=== PATIENT | female | born 1970 | race Caucasian/White ===

== ENCOUNTER 2016-08-17 08:19 | Outpatient (CLI) | payer OTHER | END 2016-08-17 08:20 | disposition home or self-care (01) | DX: Z12.31 Encounter for screening mammogram for malignant neoplasm of breast (principal) ==

== ENCOUNTER 2017-06-08 08:06 | Outpatient (CLI) | payer OTHER ==
--- NOTE | 2017-06-08 15:18 | Ultrasound Report ---
EXAM: CAROTID DOPPLER ULTRASOUND EXAM DATE: 06/08/2017 08:19 a.m. CLINICAL HISTORY: Syncope, carotid atherosclerosis. COMPARISON: None. TECHNIQUE: Real-time sonographic vascular imaging was performed by the stunner and shackler through the caroti d arterial system with a linear transducer utilizing color-flow, Doppler flow and spectral analysis. Multiple advertising representative static images were saved for review. FINDINGS: Right: There is no plaquing in the right carotid bifurcation or internal carotid artery. Left: There is no plaquing in the left carotid bifurcation or internal carotid artery. The vertebral arteries demonstrate antegrade flow bilaterally. RIGHT: RCCA Prox: PSV 74 cm/sec. RCCA Dist: PSV 66 cm/sec, EDV 25 cm/sec. RECA: PSV 76 cm/sec. R Bulb: PSV 64 cm/sec, EDV 25 cm/sec, ICA/CCA ratio 0.96. CHLOE Prox: PSV 68 cm/sec, EDV 30 cm/sec, ICA/CCA ratio 1.0. CHLOE Mid: PSV 84 cm/sec, EDV 35 cm/sec, ICA/CCA ratio 1.2. CHLOE Dist: PSV 91 cm/sec, EDV 47 cm/sec, ICA/CCA ratio 1.3. RVA: PSV 59 cm/sec. RVA flow direction: Antegrade. LEFT: LCCA Prox: PSV 85 cm/sec. LCCA Dist: PSV 84 cm/sec, EDV 31 cm/sec. LECA: PSV 75 cm/sec. L Bulb: PSV 82 cm/sec, EDV 31 cm/sec, ICA/CCA ratio .097. LICA Prox: PSV 64 cm/sec, EDV 28 cm/sec, ICA/CCA ratio 0.76. LICA Mid: PSV 89 cm/sec, EDV 36 cm/sec, ICA/CCA ratio 1.0. LICA Dist: PSV 64 cm/sec, EDV 31 cm/sec, ICA/CCA ratio 0.76. LVA: PSV 56 cm/sec. LVA flow direction: Antegrade. Other: Incidental note of heterogeneous thyroid echotexture. Correlation with thyroid function tests is recommended. IMPRESSION: No hemodynamically significant stenoses. Validated velocity measurements with angiographic measurements and velocity criteria are extrapolated from diameter data as defined by the Society of Radiologists in Ultrasound Consensus Conference Radi ology 2003; 229;340-346. [facility] Referring Provider Line: [phone] SITE ID: [id number]
== END 2017-06-08 08:07 | disposition home or self-care (01) ==
LOC: DI 08:06
PROVIDERS: ATTEND Internal Medicine Cardiovascular Disease
DX: R55 Syncope and collapse (principal)
CPT/HCPCS: 93880

== ENCOUNTER 2019-08-03 08:00 | Outpatient (CLI) | payer OTHER ==
[2019-08-03 14:33] LABS: BASOPHILS # (AUTO) 0.1 10^3/uL (0.0-0.1); BASOPHILS % (AUTO) 1.1 %; EOSINOPHILS # (AUTO) 0.1 10^3/uL (0.0-0.7); EOSINOPHILS % (AUTO) 1.8 %; HGB - HEMOGLOBIN 12.8 g/dL (12.0-16.0); LYMPHOCYTES # (AUTO) 1.3 10^3/uL (1.5-3.5); MEAN CORPUSCULAR HEMOGLOBIN 30.2 pg (27.0-31.0); MEAN CORPUSCULAR HGB CONC 31.4 g/dL (32.0-36.0); MEAN PLATELET VOLUME 9.4 fL (7.9-10.8); MONOCYTES # (AUTO) 0.5 10^3/uL (0.0-1.0); MONOCYTES % (AUTO) 11.2 %; NEUTROPHILS # (AUTO) 2.5 10^3/uL (1.5-6.6); NEUTROPHILS % (AUTO) 55.7 %; PLT - PLATELET COUNT 298 10^3/uL (130-450); RED BLOOD COUNT 4.24 10^6/uL (4.20-5.40); RED CELL DISTRIBUTION WIDTH 13.8 % (12.0-15.0); WHITE BLOOD COUNT 4.5 x10^3/uL (4.8-10.8)
[2019-08-03 15:11] LABS: ALBUMIN 4.3 g/dL (3.2-5.5); ALBUMIN/GLOBULIN RATIO 1.8 (1.0-2.2); BILIRUBIN,TOTAL 1.4 mg/dL (0.2-1.0); CALCIUM 9.5 mg/dL (8.5-10.3); CREATININE 0.6 mg/dL (0.4-1.0); TOTAL PROTEIN 6.7 g/dL (6.7-8.2)
== END 2019-08-03 23:59 | disposition home or self-care (01) ==
LOC: LAB.WCP 08:00
PROVIDERS: ATTEND Physician Assistant Medical
DX: R10.13 Epigastric pain (principal)
CPT/HCPCS: 36415; 80053; 83690; 85025

== ENCOUNTER 2019-08-28 07:34 | Outpatient (CLI) | payer OTHER ==
--- NOTE | 2019-08-28 10:48 | Ultrasound Report ---
Reason: EPIGASTRIC PAIN Procedure Date: 08/28/2019 Accession Number: [id number] / [id number] Procedure: US - Abdomen Complete CPT Code: Final Report FULL RESULT: EXAM: ABDOMEN ULTRASOUND EXAM DATE: 08/28/2019 08:47 AM. CLINICAL HISTORY: EPIGASTRIC PAIN. COMPARISON: None. TECHNIQUE: Real-time scanning was performed with static images obtained. FINDINGS: Liver: Coarse parenchyma, mildly echogenic. No masses. Normal overall size, 14.2 cm. Main portal vein flow: Hepatopetal. Gallbladder: Heterogeneous gallbladder wall compatible with adenomyomatosis. No stones, wall thickening, or localized tenderness. Biliary System: Common bile duct measures 5 mm. No intrahepatic or extrahepatic ductal dilatation. Pancreas: Visualized portion is unremarkable. Kidneys: Right: 10.0 cm longitudinally. Normal. No contour-deforming mass, stones, or hydronephrosis. Left: 10.1 cm longitudinally. Normal. No contour-deforming mass, stones, or hydronephrosis. Spleen: 8.9 x 2.7 x 8.7 cm. Normal in size and echotexture. Aorta and Inferior Vena Cava: Unremarkable. Other: None. IMPRESSION: 1. Mild fatty liver. 2. Gallbladder Adenomyomatosis. [facility]
== END 2019-08-28 07:35 | disposition home or self-care (01) ==
LOC: DI 07:34
PROVIDERS: ATTEND Physician Assistant Medical
DX: K76.0 Fatty (change of) liver, not elsewhere classified (principal); K82.8 Other specified diseases of gallbladder
CPT/HCPCS: 76700

== ENCOUNTER 2019-10-01 13:27 | Day surgery (SDC) | payer OTHER ==
[2019-10-01] MEDS ORDERED: LACTATED RINGERS 1,000 ML IV ONE (13:39)
[2019-10-01] MEDS ORDERED: LIDO GARGLE 30 ML BOTTLE ONE (14:16)
[2019-10-01] MEDS ORDERED: MIDAZOLAM 2 MG/2 ML VIAL IVP ONE (14:55)
[2019-10-01] MEDS ORDERED: fentaNYL 250 MCG/5 ML VIAL IVP ONE (14:55)
[2019-10-01] MEDS ORDERED: LIDO GARGLE 30 ML BOTTLE PO ONE (14:59)
[2019-10-01 16:13] VITALS: BP 103/65
[2019-10-01] MEDS ORDERED: ONDANSETRON ODT 4 MG TABLET ONE (16:25)
== END 2019-10-01 13:28 | disposition home or self-care (01) ==
LOC: SDS 13:27
PROVIDERS: ATTEND Surgery
PROC: 0DB68ZX Excision of Stomach, Via Natural or Artificial Opening Endoscopic, Diagnostic (ICD-10-PCS; 2019-10-01)
PROC: 0DB48ZX Excision of Esophagogastric Junction, Via Natural or Artificial Opening Endoscopic, Diagnostic (ICD-10-PCS; 2019-10-01)
PROC: 0DB98ZX Excision of Duodenum, Via Natural or Artificial Opening Endoscopic, Diagnostic (ICD-10-PCS; principal; 2019-10-01 14:15)
DX: K29.50 Unspecified chronic gastritis without bleeding (principal); K44.9 Diaphragmatic hernia without obstruction or gangrene; K20.9 Esophagitis, unspecified; K76.0 Fatty (change of) liver, not elsewhere classified
CPT/HCPCS: 43239; A9270; J3010; J7120; Q0162; 81025

== ENCOUNTER 2022-03-19 14:08 | Outpatient (CLI) | payer OTHER ==
--- NOTE | 2022-03-20 10:06 | Mammography Report ---
BILATERAL DIGITAL SCREENING MAMMOGRAM 3D/2D WITH AUGMENTATION: 03/19/2022 CLINICAL: Routine screening. Comparison is made to exams dated: 08/17/2016 mammogram, 07/12/2015 mammogram, 05/10/2014 mammogram, and 02/29/2012 mammogram - [facility]. Both breasts are heterogeneously dense, which may obscure small masses (category c / 51-75% glandula r tissue). Bilateral breast implants are present. No significant masses, calcifications, or other findings are seen in either breast. There has been no significant interval change. IMPRESSION: NEGATIVE There is no mammographic evidence of malignancy. A 1 year screening mammogram is recommended. This exam was interpreted at Station ID: [id number]. NOTE: For mammograms, a report in lay terms will be sent to the patient. Approximately 15% of breast malignancies will not be visualized mammographically. In the management of a palpable breast mass, a negative mammogram must not discourage biopsy of a clinically suspicious lesion. Electronically Signed By: Chadwick Lee M.D. at/[email or web address]:03/19/2022 16:34:05 ACR BI-RADS Category 1: Negative 3341F PARENCHYMAL PATTERN: (D) - The breast(s) demonstrate(s) heterogeneously dense fibroglandular marita chandler. BI-RADS CATEGORY: (1) - 1 RECOMMENDATION: (ANNUAL) - Recommend routine annual screening mammography. [id number] 1 year screening LATERALITY: (B)
== END 2022-03-19 14:09 | disposition home or self-care (01) ==
LOC: DI 14:08
DX: Z12.31 Encounter for screening mammogram for malignant neoplasm of breast (principal); Z98.82 Breast implant status

== ENCOUNTER 2022-03-21 06:35 | Day surgery (SDC) | payer OTHER ==
[2022-03-21] MEDS ORDERED: LACTATED RINGERS 1,000 ML IV ONE ×2 (06:51→08:27)
[2022-03-21] MEDS ORDERED: ACETAMINOPHEN 500 MG TABLET PO ONE (06:58)
[2022-03-21] MEDS ORDERED: CELECOXIB 100 MG CAPSULE PO ONE (06:58)
--- NOTE | 2022-03-21 07:12 | ANESTHESIA ---
Pre-Anesthesia VS, & Labs - Diagnosis bilateral carpal tunnel syndrome - Procedure carpal tunnel release Vital Signs: Temp Pulse Resp BP Pulse Ox 36.1 C L 77 11 L 133/78 H 100 03/21/22 06:51 03/21/22 06:51 03/21/22 06:51 03/21/22 06:51 03/21/22 06:51 Height: 5 ft 2 in Weight (kg): 51.6 kg Body Mass Index: 20.7 BMI Classification: Healthy weight - NPO >8 hours - Is Patient ?: No Home Medications and Allergies Home Medications: Ambulatory Orders Escitalopram Oxalate [Lexapro] 5 mg PO DAILY 03/15/22 Thyroid [[place]halia Thyroid] 60 mg PO DAILY 03/15/22 Escitalopram Oxalate [Lexapro] 5 mg PO DAILY 03/15/22 Thyroid [[place]ia Thyroid] 60 mg PO DAILY 03/15/22 Allergies/Adverse Reactions: Allergies Allergy/AdvReac Type Severity Reaction Status Date / Time adhesive AdvReac Intermediate blisters Verified 03/21/22 06:58 ciprofloxacin [From Cipro] AdvReac Nausea Verified 03/21/22 06:58 fluticasone [From Flonase] AdvReac Unknown Verified 03/21/22 06:58 Anes History & Medical History - Anesthetic History Anesthesia Complications: reports: No previous complications Family history of Anesthesia Complications: Denies Family history of Malignant Hyperthermia: Denies - Medical History Cardiovascular: reports: Other (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) Pulmonary: reports: None Gastrointestinal: reports: None Urinary: reports: None Neuro: reports: None Musculoskeletal: reports: Other Endocrine/Autoimmune: reports: HyPOthyroidism Blood Disorders: reports: None Skin: reports: None Smoking Status: Never smoker Psychosocial: reports: Depression History of Cancer?: No - Surgical History Cardiothoracic: reports: Pacemaker Gynecologic: reports: Breast implants Neurologic: reports: Other Exam General: Alert, Oriented x3, Cooperative, No acute distress Dental: WNL Mouth Openin Fingerbreadth Neck Mobility: Normal Mallampati classification: II Thyromental Distance: 4-6 cm Respiratory: Lungs clear Cardiovascular: Regular rate Mental/Cognitive Status: Alert/Oriented X3 Cognitive Status: Within normal limits Plan Anesthesia Type: Total IV Consent for Procedure(s) Verified and Reviewed: Yes Code Status: Attempt Resuscitation ASA classification: 2-Mild systemic disease Is this case an emergency?: No
[2022-03-21] MEDS ORDERED: MIDAZOLAM 2 MG/2 ML VIAL ONE (07:36)
[2022-03-21] MEDS ORDERED: LIDOCAINE-MPF 2% 5 ML VIAL ONE (07:36)
[2022-03-21] MEDS ORDERED: PROPOFOL 500 MG/50 ML 500 MG/50 ML VIAL ONE (07:36)
[2022-03-21] MEDS ORDERED: oxyCODONE 5 MG TABLET PO PRN (07:37)
[2022-03-21] MEDS ORDERED: LIDOCAINE MPF 2%-EPI 1:200000 20 ML VIAL ONE (07:38)
[2022-03-21] MEDS ORDERED: BUPIVACAINE 0.5% PF 30 ML VIAL ONE (07:54)
[2022-03-21] MEDS ORDERED: BUPIVACAINE 0.5% PF 30 ML VIAL INFIL ONE ×2 (08:05)
[2022-03-21] MEDS ORDERED: LIDOCAINE MPF 2%-EPI 1:200000 20 ML VIAL SUBQ ONE ×2 (08:07)
[2022-03-21] MEDS ORDERED: KETAMINE 500 MG/10 ML VIAL ONE (08:19)
[2022-03-21] MEDS ORDERED: ONDANSETRON 4 MG/2 ML VIAL ONE ×2 (08:25→09:36)
--- NOTE | 2022-03-21 08:31 | OPERATIVE REPORT ---
Operative Report - General Procedure Date: 03/21/22 Planned Procedure: Left Carpal tunnel release Pre-Op Diagnosis: Left carpal tunnel syndrome Procedure Performed: Left carpal tunnel release Post Op Diagnosis: Same as preoperative diagnosis - Procedure Note Primary Surgeon: Harish Gonzalez MD Secondary Surgeon: Pat IRVIN Anesthesia Provider: Analy Fan CRNA Anesthesia Technique: Local, Moderate sedation Estimated Blood Loss (mL): 3 Indications: This is a 51-year-old with bilateral hand numbness, chronic, unresponsive to nonoperative treatment. Her exam showed positive findings consistent with carpal tunnel syndrome, normal two-point discrimination to left hand. She has no history of neurologic conditions. Findings: The median nerve appeared grossly normal. There was a nonspecific tenosynovitis present about the carpal tunnel Complications: None - Other Other Information/Narrative: The patient was brought to the operating room and placed in a supine position. The left arm was placed in a arm extension table. A pneumatic tourniquet had been applied to the proximal left arm over cast padding. The left upper extremity was prepped and draped in a sterile manner in the usual fashion. A timeout procedure was performed by the entire operating room team and all were in agreement. A 50-50 mixture of 4 cc of 2% lidocaine with epinephrine And 4 cc half percent Marcainewas injected about the left carpal tunnel using a volar approach just proximal to the wrist flexor crease, ulnar to the palmaris longus. An additional amount was injected subcutaneously. A longitudinal incision was made in line with the third webspace. The incision began just distal to the wrist flexor crease and extended for 2.5 cm. The subcutaneous tissue and palmar aponeurosis were divided in line with the incision. The transverse carpal ligament was identified proximally and was incised. A blunt obturator was inserted beneath the transverse carpal ligament. The transverse carpal ligament was then divided from proximal to distal under direct visualization. The transverse carpal ligament was divided proximally with blunt tip scissors to achieve a full release of the carpal tunnel. The median nerve was inspected. The wound was irrigated. The skin was closed with interrupted 4-0 nylon vertical mattress suture. A bulky hand dressing was applied to the left hand and wrist with mild compression. A pneumatic tourniquet was not utilized during the procedure. Hemostasis was achieved with letter cautery. The patient tolerated procedure wellA physician printing bindery assistant was medically necessary to help with prepping and draping, positioning, protection of vital structures, assistance during the procedure including wound closure, dressing and/or splinting.
[2022-03-21] MEDS ORDERED: ONDANSETRON 4 MG/2 ML VIAL IVP PRN (09:23)
[2022-03-21 09:31] VITALS: BP 110/69
--- NOTE | 2022-03-21 13:35 | ANESTHESIA POST OP EVALUATION ---
Anesthesia Post Eval - Post Anesthesia Eval Vitals: Last Vital Signs Temp 36.7 C 03/21/22 09:16 Pulse 66 03/21/22 09:31 Resp 16 03/21/22 09:31 BP 110/69 03/21/22 09:37 Pulse Ox 100 03/21/22 09:31 CV Function Including HR & BP: Stable Pain Control: Satisfactory Nausea & Vomiting: Negative Mental Status: Baseline Respiratory Status: Airway Patent Hydration Status: Satisfactory Anesthesia Complications: None
== END 2022-03-21 06:36 | disposition home or self-care (01) ==
LOC: SDS 06:35
PROVIDERS: ATTEND Orthopaedic Surgery
DX: G56.03 Carpal tunnel syndrome, bilateral upper limbs (principal); Z95.0 Presence of cardiac pacemaker

== ENCOUNTER 2022-11-13 09:23 | Day surgery (SDC) | payer OTHER ==
[2022-11-13] MEDS ORDERED: LACTATED RINGERS 1,000 ML IV ONE (09:36)
[2022-11-13] MEDS ORDERED: LIDOCAINE-PF 2% 10 ML AMP SUBQ ONE (10:06)
[2022-11-13] MEDS ORDERED: PROPOFOL 500 MG/50 ML 500 MG/50 ML VIAL ONE (10:06)
[2022-11-13] MEDS ORDERED: MIDAZOLAM 2 MG/2 ML VIAL ONE (10:06)
--- NOTE | 2022-11-13 10:10 | ANESTHESIA ---
Pre-Anesthesia VS, & Labs - Diagnosis screening - Procedure colonoscopy Vital Signs: Temp Pulse Resp BP Pulse Ox O2 Flow Rate 36.1 C L 77 14 113/74 99 11/13/22 09:36 11/13/22 09:36 11/13/22 09:36 11/13/22 09:36 11/13/22 09:36 Height: 5 ft 2 in Weight (kg): 53.5 kg Body Mass Index: 21.5 BMI Classification: Normal - NPO >8 hours - Is Patient ?: No Home Medications and Allergies Thyroid [Weiser Thyroid] 60 mg PO DAILY 03/15/22 Allergies/Adverse Reactions: Allergies Allergy/AdvReac Type Severity Reaction Status Date / Time adhesive AdvReac Intermediate blisters Verified 11/12/22 14:13 ciprofloxacin [From Cipro] AdvReac Nausea Verified 11/12/22 14:13 fluticasone [From Flonase] AdvReac Unknown Verified 11/12/22 14:13 Anes History & Medical History - Anesthetic History Anesthesia Complications: reports: No previous complications Family history of Anesthesia Complications: Denies Family history of Malignant Hyperthermia: Denies - Medical History Cardiovascular: reports: Other (pacemaker) Pulmonary: reports: None Gastrointestinal: reports: None Urinary: reports: None Neuro: reports: None Musculoskeletal: reports: None Endocrine/Autoimmune: reports: None Blood Disorders: reports: None Skin: reports: None Smoking Status: Never smoker Psychosocial: reports: Alcohol History of Cancer?: No - Surgical History Cardiothoracic: reports: Pacemaker Gynecologic: reports: Breast implants Neurologic: reports: Other Exam General: Alert, Oriented x3, Cooperative Dental: WNL Mouth Openin Fingerbreadth Neck Mobility: Normal Mallampati classification: I Thyromental Distance: 4-6 cm Respiratory: Lungs clear Cardiovascular: Regular rate Plan Anesthesia Type: General, Total IV Consent for Procedure(s) Verified and Reviewed: Yes Code Status: Attempt Resuscitation ASA classification: 3-Severe systemic disease Is this case an emergency?: No
[2022-11-13] MEDS ORDERED: LACTATED RINGERS 500 ML IV ONE (10:29)
[2022-11-13 10:48] VITALS: BP 100/65
--- NOTE | 2022-11-13 15:42 | ANESTHESIA POST OP EVALUATION ---
Anesthesia Post Eval - Post Anesthesia Eval Vitals: Last Vital Signs Temp 36.0 C L 11/13/22 10:48 Pulse 72 11/13/22 10:48 Resp 10 L 11/13/22 10:48 BP 100/65 11/13/22 10:48 Pulse Ox 100 11/13/22 10:48 O2 Flow Rate CV Function Including HR & BP: Stable Pain Control: Satisfactory Nausea & Vomiting: Negative Mental Status: Baseline Respiratory Status: Airway Patent Hydration Status: Satisfactory Anesthesia Complications: None
== END 2022-11-13 09:24 | disposition home or self-care (01) ==
LOC: SDS 09:23
PROVIDERS: ATTEND Surgery
DX: Z12.11 Encounter for screening for malignant neoplasm of colon (principal); K64.9 Unspecified hemorrhoids; K57.30 Diverticulosis of large intestine without perforation or abscess without bleeding; Z95.0 Presence of cardiac pacemaker
CPT/HCPCS: 45378; J7120

== ENCOUNTER 2023-04-26 12:18 | Outpatient (CLI) | payer OTHER ==
--- NOTE | 2023-04-29 09:34 | Ultrasound Report ---
LIMITED ULTRASOUND OF RIGHT BREAST: 04/26/2023 CLINICAL: Nipple itching and pain. Comparison is made to exams dated: 03/19/2022 mammogram, 08/17/2016 mammogram, and 07/12/2015 mammogra - [facility]. Color flow ultrasound of the right breast retroareolar was performed. Heaton scale images of the real- time examination were reviewed. No significant abnormalities were seen sonographically in the right breast. IMPRESSION: NEGATIVE There is no sonographic evidence of malignancy. There is no abnormality seen in the right breast to correspond with the area of clinical concern and nipple abnormality, however, recommend clinical follow up for persistent or worsening symptoms, or d evelopment of any clinically suspicious findings. A 1 year screening mammogram is recommended. Findings and recommendations were conveyed to the patient during today's evaluation. This exam was interpreted at Station ID: [id number]. Electronically Signed By: Chadwick Lee M.D. aty/:04/26/2023 14:28:38 Ultrasound BI-RADS: 1 Negative BI-RADS CATEGORY: (1) - 1 Mammogram [id number] 1 year screening LATERALITY: (B)
--- NOTE | 2023-04-29 09:34 | Mammography Report ---
BILATERAL DIGITAL DIAGNOSTIC MAMMOGRAM 3D/2D WITH SPOT COMPRESSION WITH AUGMENTATION: 04/26/2023 CLINICAL: Bilateral pain and itching retroareolar. Comparison is made to exams dated: 03/19/2022 mammogram, 08/17/2016 mammogram, 07/12/2015 mammogram, a nd 05/10/2014 mammogram - [facility]. Both breasts are extremely dense, which lowers the sensitivity of mammography (category d />75% gland ular tissue). No significant masses, calcifications, or other findings are seen in either breast. IMPRESSION: INCOMPLETE: NEEDS ADDITIONAL IMAGING EVALUATION The implants are intact. There is no abnormality seen in either breast to correspond with the area o f clinical concern and nipple abnormality in the sub-areolar depth, however, an ultrasound is recomm ended for further evaluation and is scheduled to immediately follow this examination. Based on Tyrer-Cuzick model (a risk assessment model), the patient's lifetime risk is 27.4% and her 1 0 year risk is 8.1%. If a patient has an elevated risk, a more comprehensive evaluation should be con sidered and/or a referral to a genetic counselor. The [place] [employer], [place] [employer], and NCCN Guidelines advise the consideration of Breast MRI as an adjunct to screening mammog diandra in patients whose "Lifetime risk to develop breast cancer" is 20% or higher. This exam was interpreted at Station ID: [id number]. NOTE: For mammograms, a report in lay terms will be sent to the patient. Approximately 15% of breast malignancies will not be visualized mammographically. In the management of a palpable breast mass, a negative mammogram must not discourage biopsy of a clinically suspicious lesion. Electronically Signed By: Chadwick Lee M.D. aty/:04/26/2023 14:19:26 ACR BI-RADS Category 0: Incomplete 3340F PARENCHYMAL PATTERN: (VD) - The breast(s) demonstrate(s) extremely dense parenchyma, limiting the sen sitivity of mammography. BI-RADS CATEGORY: (0) - 0 Ultrasound [id number] Immediate follow-up LATERALITY: (B)
--- NOTE | 2023-04-29 09:34 | Ultrasound Report ---
LIMITED ULTRASOUND OF LEFT BREAST: 04/26/2023 CLINICAL: Nipple itching and pain. Comparison is made to exams dated: 03/19/2022 mammogram, 08/17/2016 mammogram, and 07/12/2015 mammogra m - [facility]. Color flow ultrasound of the left breast retroareolar was performed. Heaton scale images of the real- time examination were reviewed. No significant abnormalities were seen sonographically in the left breast. IMPRESSION: NEGATIVE There is no sonographic evidence of malignancy. There is no abnormality seen in the left breast to correspond with the nipple abnormality in the sub- areolar depth, however, recommend clinical follow up for persistent or worsening symptoms, or develop ment of any clinically suspicious findings. A 1 year screening mammogram is recommended. Findings and recommendations were conveyed to the patient during today's evaluation. This exam was interpreted at Station ID: [id number]. Electronically Signed By: Chadwick Lee M.D. aty/:04/26/2023 14:32:18 Ultrasound BI-RADS: 1 Negative BI-RADS CATEGORY: (1) - 1 Mammogram [id number] 1 year screening LATERALITY: (B)
== END 2023-04-26 12:19 | disposition home or self-care (01) ==
LOC: DI 12:18
PROVIDERS: ATTEND Physician Assistant Medical
DX: N64.4 Mastodynia (principal); R92.343 Mammographic extreme density, bilateral breasts; Z98.82 Breast implant status

== ENCOUNTER 2024-02-18 07:18 | Outpatient (CLI) | payer OTHER ==
--- NOTE | 2024-02-18 22:30 | Ultrasound Report ---
PROCEDURE: Abdomen Limited INDICATIONS: EPIGASTRIC PAIN TECHNIQUE: Real-time focused scanning was performed of the abdomen, with image documentation. COMPARISONS: Ultrasound abdomen 08/28/2019 FINDINGS: Liver: Liver is normal in size. Focus of increased echogenicity in the right lobe is present measuri ng 2.1 cm suggestive of hemangioma. Gallbladder: No stones. There is an overall appearance of adenomyomatosis. Wall thickening is normal. Biliary ducts: Intrahepatic bile ducts are non-dilated. Extrahepatic bile duct caliber measures 2.7 mm. Normal is 6-7 mm or less in diameter, or 10 mm or less post-cholecystectomy. Pancreas: Visualized portions of the pancreas are sonographically normal. Right kidney: Normal in size and echotexture. Right kidney measures 10 cm long. No hydronephrosis or nephrolithiasis. No solid masses. No complex renal cystic lesions which require follow-up. IVC: Intrahepatic inferior vena cava is patent. Miscellaneous: No free abdominal fluid. IMPRESSION: Gallbladder demonstrates appearance of adenomyomatosis. Hemangioma in the right hepatic lobe. Reviewed by: Nella Burroughs MD on 02/18/2024 10:28 PM PDT Approved by: Nella Burroughs MD on 02/18/2024 10:28 PM PDT Station ID: [id number]
== END 2024-02-18 07:19 | disposition home or self-care (01) ==
LOC: DI 07:18
PROVIDERS: ATTEND Surgery
DX: D18.09 Hemangioma of other sites (principal)